=== PATIENT | male | born 1940 | race Caucasian/White ===

== ENCOUNTER 2018-06-28 14:05 | Emergency (ER) | payer OTHER, MEDICARE ==
--- NOTE | 2018-06-28 14:53 | EDM.PDOC ---
ED HPI GENERAL MEDICAL PROBLEM - General Stated Complaint: CHEST DISCOMFORT Time Seen by Provider: 06/28/18 14:20 Source of Information: Reports: Patient History Limitations: Reports: No Limitations - History of Present Illness INITIAL COMMENTS - FREE TEXT/NARRATIVE: Pt claims that he has shovelling now today after noon and felt pressure in his chest, he feels mild shortness of breath with exertion. The feeling of chest tightness was very transient, he walked into the house and rested and resolved. He claims that this symptoms is not new, every time he over exerts he feels chest tightness.He has never had chest pain or left arm pain or jaw pain. No sweating. He can climb 1 flight of stairs without any discomfort. Also he claims that his lower extremities have been swollen for the past 7 days now. Also he has been having mild shortness of breath on and off with exertion for past 7 days. He is not sure if it is his asthma. No cough, fever or chills. No productive cough. Pt is here as he does have Atrial fibrillation. And he does go to [facility], and was set up for Cardiac stress test and ECHO in August of 2018. Duration: Week(s): (1), Intermittent, Waxing/Waning Improves with: Reports: None Worsens with: Reports: None Associated Symptoms: Reports: Chest Pain (pressure), Shortness of Breath. Denies: Confusion, Cough, Diaphoresis, Fever/Chills, Headaches, Nausea/Vomiting , Rash, Seizure, Syncope, Weakness Mid-Sternal Chest Pain Score (Numeric/FACES): 3 ED ROS GENERAL - Review of Systems Review Of Systems: See Below Constitutional: Denies: Fever, Chills, Weakness, Night Sweats, Diaphoresis Respiratory: Reports: Shortness of Breath. Denies: Pleuritic Chest Pain, Cough , Sputum Cardiovascular: Reports: Chest Pain (transient chest pressure). Denies: Lightheadedness GI/Abdominal: Denies: Abdominal Pain, Nausea, Vomiting : Denies: Dysuria, Flank Pain Musculoskeletal: Denies: Joint Pain, Joint Swelling Skin: Denies: Bruising, Pruritis, Rash ED EXAM, GENERAL - Physical Exam Exam: See Below Exam Limited By: No Limitations General Appearance: Alert, WD/WN, No Apparent Distress Eye Exam: Bilateral Eye: EOMI, PERRL Ears: Normal External Exam, Normal Canal, Hearing Grossly Normal, Normal TMs Ear Exam: Bilateral Ear: Auricle Normal, Canal Normal, TM normal Nose: Normal Inspection, Normal Mucosa, No Blood Throat/Mouth: Normal Inspection, Normal Lips, Normal Teeth, Normal Gums, Normal Oropharynx, Normal Voice, No Airway Compromise Head: Atraumatic Neck: Normal Inspection Respiratory/Chest: No Respiratory Distress, Lungs Clear, Normal Breath Sounds, No Accessory Muscle Use, Chest Non-Tender Cardiovascular: Normal Peripheral Pulses, No Murmur, Irregularly Irregular Peripheral Pulses: 2+: Carotid (L), Carotid (R), Radial (L), Radial (R), Dorsalis Pedis (L), Dorsalis Pedis (R) Extremities: Normal Inspection, Normal Range of Motion, Non-Tender, Normal Capillary Refill, Pedal Edema (2+ pitting type B/L) Neurological: Alert, Oriented, CN II-XII Intact, Normal Cognition, Normal Gait, Normal Reflexes, No Motor/Sensory Deficits Skin Exam: Warm, Intact EKG INTERPRETATION EKG Date: 06/28/18 Rhythm: A-Fib Rate (Beats/Min): 58 [place]: Normal P-Wave: Present QRS: Normal ST-T: Normal QT: Normal Course - Vital Signs Text/Narrative:: Pt has had exertional dyspnea with lower extremity edema for past 7 days now. In the emergency room ,Pt's initial vitals are stable. His EKG does show Afib with rate of 58. On clinical exam he does have irregularly irregular heart rate with 2+ pitting pedal edema. Lungs are clear to auscultation SpO 2 is 99-100% on room air. His work up shows normal CBC , CMP are normal. His Initial troponin is negative.EKG is in Afib. His chest X-ray does show Cardiomegaly with mild pulmonary congestion ( the only Chest xray available here is from 2005 which appeared normal). His BNP is elevated at 1729. Pt's reassured that his clinical symptoms are consistent with gradual onset Congestive heart failure.Might be related to his Afib, or might have underlying coronary heart disease. He is on digoxin and metoprolol per his primary care. I have started him on imdur 30mg daily to help with his cardiac functions and also lasix 20mg po twice daily to help with diuresis. I have placed patient on fluid restriction to total of 1200cc/day. Salt restriction to 2gms/day. Elevation of lower extremities at bedtime. I did try contacting [facility] to discuss patient with student ambassador. The nurse was available to discuss patient information. As patient is stable , I did request a sooner then August appointment to have patient's cardiology workup that was scheduled for August( Cardiac stress test and ECHO0. Patient has been scheduled to see his primary care provider at [facility] on 07/02/18 at 8:30 am. I have advised Patient to return to emergency room, if he does developed severe chest pain with radiation to back, jaw or left arm, sweating, shortness of breath develops form now to his physician visit on 07/02/18. Otherwise followup with [facility]. Last Recorded V/S: Last Vital Signs Temp 98.1 F 06/28/18 14:26 Pulse 77 06/28/18 14:26 Resp 16 06/28/18 14:26 BP 155/76 H 06/28/18 15:41 Pulse Ox 99 06/28/18 14:26 - Orders/Labs/Meds Orders: Active Orders 24 hr Category Date Time Status EKG Documentation Completion [RC] ASDIRECTED Care 06/28/18 14:23 Ordered Chest 1V Frontal [CR] Stat Exams 06/28/18 14:24 Ordered Labs: Laboratory Tests 06/28/18 06/28/18 06/28/18 Range/Units 14:30 14:30 14:30 WBC 6.6 (4.0-11.0) K/uL RBC 3.72 L (4.50-6.50) M/uL Hgb 11.9 L (13.0-18.0) g/dL Hct 36.5 L (40.0-54.0) % MCV 98 H (76-96) fL MCH 32.0 (27.0-32.0) pg MCHC 32.6 (31.0-35.0) g/dL RDW 13.5 (11.0-16.0) % Plt Count 204 (150-400) K/uL MPV 8.9 (6.0-10.0) fL Neut % (Auto) 64.5 (45.0-70.0) % Lymph % (Auto) 24.1 (20.0-40.0) % Carver % (Auto) 9.2 (3.0-10.0) % Eos % (Auto) 1.7 (1.0-5.0) % Baso % (Auto) 0.5 (0.0-0.5) % Neut # (Auto) 4.28 (2.00-7.50) K/uL Lymph # (Auto) 1.60 (1.50-4.00) K/uL Carver # (Auto) 0.61 (0.20-0.80) K/uL Eos # (Auto) 0.11 (0.04-0.40) K/uL Baso # (Auto) 0.03 (0.02-0.10) K/uL Sodium 141 (136-145) mmol/L Potassium 4.4 (3.5-5.1) mmol/L Chloride 107 (98-107) mmol/L Carbon Dioxide 25.7 (21.0-32.0) mmol/L Anion Gap 12.7 (5.0-15.0) mmol/L BUN 20 (8-26) mg/dL Creatinine 1.02 (0.70-1.30) mg/dL Est Cr Clr Drug Dosing 68.68 mL/min Estimated GFR (MDRD) > 60 (>60) MLS/MIN BUN/Creatinine Ratio 19.6 (6-25) Glucose 94 (74-100) mg/dL Calcium 8.1 L (8.5-10.1) mg/dL Total Bilirubin 0.5 (0.0-1.0) mg/dL AST 39 H (15-37) U/L ALT 42 (12-78) U/L Alkaline Phosphatase 116 (46-116) U/L Troponin I 0.024 (0.000-0.060) ng/mL B-Natriuretic Peptide 1729 H (0-450) pg/mL Total Protein 7.1 (6.4-8.2) g/dL Albumin 3.3 L (3.4-5.0) g/dL Globulin 3.8 (2.2-4.2) g/dL Albumin/Globulin Ratio 0.9 (0.8-2.0) Meds: Medications Discontinued Medications Generic Name Dose Route Start Last Admin Trade Name Freq PRN Reason Stop Dose Admin Furosemide 20 mg 06/28/18 15:40 06/28/18 15:44 Lasix PO 06/28/18 15:41 20 mg ONETIME ONE Administration Isosorbide Mononitrate 30 mg 06/28/18 15:40 06/28/18 15:41 Imdur PO 06/28/18 15:41 30 mg ONETIME ONE Administration Departure - Departure Time of Disposition: 16:30 Disposition: Home, Self-Care 01 Condition: Fair Clinical Impression: CHF (congestive heart failure) - Discharge Information *PRESCRIPTION DRUG MONITORING PROGRAM REVIEWED*: Not Applicable *COPY OF PRESCRIPTION DRUG MONITORING REPORT IN PATIENT BLAKE: Not Applicable Referrals: PCP,None [Primary Care Provider] - Additional Instructions: His work up shows normal CBC , CMP are normal. His Initial troponin is negative.EKG is in Afib. His chest X-ray does show Cardiomegaly with mild pulmonary congestion ( the only Chest xray available here is from 2005 which appeared normal). His BNP is elevated at 1729. Pt's reassured that his clinical symptoms are consistent with gradual onset Congestive heart failure.Might be related to his Afib, or might have underlying coronary heart disease. He is on digoxin0.25mg daily and metoprolol 25mg twice daily, per his primary care. I have started him on imdur 30mg daily to help with his cardiac functions and also lasix 20mg po twice daily to help with diuresis. I have placed patient on fluid restriction to total of 1200cc/day. Salt restriction to 2gms/day. Elevation of lower extremities at bedtime. I did try contacting [facility] to discuss patient with student ambassador. The nurse was available to discuss patient information. As patient is stable , I did request a sooner then August appointment to have patient's cardiology workup that was scheduled for August( Cardiac stress test and ECHO0. Patient has been scheduled to see his primary care provider at [facility] on 07/02/18 at 8:30 am. I have advised Patient to return to emergency room, if he does developed severe chest pain with radiation to back, jaw or left arm, sweating, shortness of breath develops form now to his physician visit on 07/02/18. Otherwise followup with [facility]. - Problem List & Annotations (1) CHF (congestive heart failure) SNOMED Code(s): 58804134 Code(s): I50.9 - HEART FAILURE, UNSPECIFIED Status: Acute Current Visit: Yes - Problem List Review Problem List Initiated/Reviewed/Updated: Yes - My Orders Last 24 Hours: My Active Orders 06/28/18 14:23 EKG Documentation Completion [RC] ASDIRECTED 06/28/18 14:24 Chest 1V Frontal [CR] Stat - Assessment/Plan Last 24 Hours: My Active Orders 06/28/18 14:23 EKG Documentation Completion [RC] ASDIRECTED 06/28/18 14:24 Chest 1V Frontal [CR] Stat Assessment:: CHF Plan: His work up shows normal CBC , CMP are normal. His Initial troponin is negative.EKG is in Afib. His chest X-ray does show Cardiomegaly with mild pulmonary congestion ( the only Chest xray available here is from 2005 which appeared normal). His BNP is elevated at 1729. Pt's reassured that his clinical symptoms are consistent with gradual onset Congestive heart failure.Might be related to his Afib, or might have underlying coronary heart disease. He is on digoxin and metoprolol per his primary care. I have started him on imdur 30mg daily to help with his cardiac functions and also lasix 20mg po twice daily to help with diuresis. I have placed patient on fluid restriction to total of 1200cc/day. Salt restriction to 2gms/day. Elevation of lower extremities at bedtime. I did try contacting [facility] to discuss patient with student ambassador. The nurse was available to discuss patient information. As patient is stable , I did request a sooner then August appointment to have patient's cardiology workup that was scheduled for August( Cardiac stress test and ECHO0. Patient has been scheduled to see his primary care provider at [facility] on 07/02/18 at 8:30 am. I have advised Patient to return to emergency room, if he does developed severe chest pain with radiation to back, jaw or left arm, sweating, shortness of breath develops form now to his physician visit on 07/02/18. Otherwise followup with [facility].
[2018-06-28] MEDS ORDERED: Furosemide 20 MG Tab PO ONE (15:40)
[2018-06-28] MEDS ORDERED: Isosorbide Mononitrate 30 MG Tab.ER PO ONE (15:40)
--- NOTE | 2018-06-30 12:14 | CR ---
AP PORTABLE CHEST, 06/28/18 No priors. The heart is enlarged. It does have somewhat globular configuration suggesting the possibility of a pericardial effusion. The aorta is ectatic. The pulmonary vasculature is prominent with some cephalization of flow consistent with pulmonary venous congestion. There are mild interstitial changes in both lower lungs. Mild congestive failure is suspected. There is blunting of both costophrenic angles consistent with small bilateral pleural effusions. There is increased density in both lung bases, right greater than left consistent with basilar atelectasis or infiltrate. Pneumonia should be considered. No other significant findings. [id number] [facility]
== END 2018-06-28 16:36 | disposition home or self-care (01) ==
LOC: LB.ED 14:05
DX: I50.9 Heart failure, unspecified (principal); I48.91 Unspecified atrial fibrillation
CPT/HCPCS: 36415; 71045; 80053; 83880; 84484; 85025; 93005; 99285-25; A9270-GY